=== PATIENT | female | born 1960 | race African-American/Black ===

== ENCOUNTER 2017-10-21 09:05 | Outpatient (CLI) | END 2017-10-21 09:06 | disposition home or self-care (01) | LOC: RAD 09:05 | PROVIDERS: ATTEND Nurse Practitioner | DX: Z12.31 Encounter for screening mammogram for malignant neoplasm of breast (principal) | CPT/HCPCS: 77067 ==

== ENCOUNTER 2018-08-18 14:08 | Outpatient (CLI) ==
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
== END 2018-08-18 14:09 | disposition home or self-care (01) ==
LOC: RAD 14:08
PROVIDERS: ATTEND Family Medicine
DX: M54.5 Low back pain (principal); M54.9 Dorsalgia, unspecified; S49.92XA Unspecified injury of left shoulder and upper arm, initial encounter; S49.91XA Unspecified injury of right shoulder and upper arm, initial encounter; V87.7XXA Person injured in collision between other specified motor vehicles (traffic), initial encounter

== ENCOUNTER 2018-08-28 13:23 | Outpatient (CLI) ==
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
== END 2018-08-28 13:24 | disposition home or self-care (01) ==
LOC: RAD 13:23
PROVIDERS: ATTEND Family Medicine
DX: R51 Headache (principal); V87.7XXA Person injured in collision between other specified motor vehicles (traffic), initial encounter

== ENCOUNTER 2019-03-31 14:49 | Outpatient (CLI) | END 2019-03-31 14:50 | disposition home or self-care (01) | LOC: CAR 14:49 | PROVIDERS: ATTEND Family Medicine | DX: M54.5 Low back pain (principal) | CPT/HCPCS: 93005; 93010 ==